=== PATIENT | male | born 1950 | race Caucasian/White ===

== ENCOUNTER 2019-03-04 09:45 | Day surgery (SDC) | payer MEDICARE, BC ==
[~2019-03-04] VITALS: Ht 185.4 cm; Wt 100.0 kg
[2019-03-04 10:05] LABS: HEMATOCRIT 46.5 % (42.0-54.0); HEMOGLOBIN 15.9 g/dL (13.5-17.5); MCH 31.1 pg (26.0-34.0); MCHC 34.2 g/dL (31.0-37.0); MCV 90.8 fL (80.0-100.0); RBC 5.12 10x6/uL (4.20-6.10); RDW 13.5 % (11.5-14.5); WBC 6.4 10x3/uL (4.8-10.8)
[2019-03-04] MEDS ORDERED: METOPROLOL TART50 MG PO (10:22)
[2019-03-04] MEDS ORDERED: NORVASC5 MG PO (10:23)
[2019-03-04] MEDS ORDERED: COZAAR50 MG PO (10:24)
[2019-03-04] MEDS ORDERED: REMERON30 MG PO (10:24)
[2019-03-04] MEDS ORDERED: MOBIC7.5 MG PO (10:25)
[2019-03-04] MEDS ORDERED: INDOCIN25 MG PO (10:26)
[2019-03-04 10:31] VITALS: BP 174/88; Ht 185.4 cm; Wt 100.0 kg
--- NOTE | 2019-03-09 11:16 | OP ---
PATIENT NAME: ROQUE SEE MEDICAL RECORD: [id number] :48 LOCATION:[facility] ADMISSION DATE: SURGEON: DIEGO BOYD DO DATE OF OPERATION: 03/04/2019 PROCEDURE: EGD with balloon dilation and biopsies. INDICATIONS FOR PROCEDURE: Dysphagia, heartburn, nausea and vomiting. SCOPE: Olympus video gastroscope. MEDICATIONS: Propofol 150 mg IV per anesthesia. ESTIMATED BLOOD LOSS: Minimal. COMPLICATIONS: None. FINDINGS: Informed consent was given. The patient was made comfortable with the above medication. After reaching an adequate level of sedation by slow IV push, the patient was placed on his left side. The endoscope was advanced under direct visualization through the mouth to the second portion of the duodenum with ease. The upper, middle, and lower thirds of the esophagus appeared normal. At the GE junction, there was evidence of LA class B reflux-induced esophagitis and some minor esophageal stenosis to approximately 16 mm diameter. A CRE dilating balloon was placed through the working channel of the endoscope across the stenosis and the site was dilated up to 18 mm maximum diameter successfully. Cold forceps biopsies were taken from the squamocolumnar junction to submit for histopathology. The endoscope was advanced beyond the GE junction into the stomach and retroflexed to view the cardia, where a small sliding hiatal hernia was visible. The fundus of the stomach appeared normal. As the endoscope passed through the distal body of the stomach as well as the antrum and prepyloric regions, there were changes of granularity and erythema consistent with gastritis. Random cold forceps biopsies were taken from the antrum and incisura to submit for histopathology and to rule out the presence of H. pylori. The endoscope was advanced beyond the pylorus into the duodenum, which appeared normal down to the second portion. The endoscope was withdrawn from the patient. The patient tolerated the procedure well. There were no complications. IMPRESSION: 1. LA class B reflux-induced esophagitis. 2. Esophageal stenosis, status post dilation to 18 mm. 3. Small sliding hiatal hernia. 4. Gastritis. PLAN AND RECOMMENDATIONS: 1. Discharge home when recovery parameters are met. 2. Follow up biopsy specimen results. 3. GERD diet and reflux precautions. 4. Continue current medications. 5. A prescription for omeprazole 40 mg daily times 60 days will be provided. 6. After completion of omeprazole, okay to use [id number] Pepcid 20 to 40 mg daily for heartburn and reflux. 7. We will follow up in the clinic in 1 month to determine if the patient's nausea and vomiting persist after this procedure. If the nausea and vomiting OPERATIVE REPORT [id number] ROQUE SEE does persist, we will work this up further and this may include gallbladder workup as well as a gastric emptying scan. It is possible that the patient's hiatal hernia is the cause of some of his symptoms as it is just after eating when he states that he gets nauseous and starts to throw up before he oftentimes will regurgitate or spit up food. 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
== END 2019-03-04 12:05 | disposition home or self-care (01) ==
LOC: D.OPS 09:45
PROVIDERS: Anesthesiology; ATTEND Internal Medicine Gastroenterology
DX: K21.0 Gastro-esophageal reflux disease with esophagitis (principal); R13.10 Dysphagia, unspecified; R12 Heartburn; K22.2 Esophageal obstruction; K29.70 Gastritis, unspecified, without bleeding; K44.9 Diaphragmatic hernia without obstruction or gangrene

== ENCOUNTER → 2020-09-08 12:13 | Outpatient (CLI) | payer MEDICARE, BC ==
[2019-07-02 13:50] VITALS: BMI 30.3
[~2020-09-08 12:13] MED LIST: COZAAR50 MG PO; ELIQUIS5 MG PO; INDOCIN25 MG PO; METOPROLOL TART50 MG PO; MOBIC7.5 MG PO; NORVASC5 MG PO; REMERON30 MG PO
== END | disposition home or self-care (01) ==
LOC: D.LAB 12:13
PROVIDERS: ATTEND Internal Medicine Pulmonary Disease
DX: Z11.52 Encounter for screening for COVID-19 (principal)

== ENCOUNTER → 2020-09-12 14:19 | Outpatient (CLI) | payer MEDICARE, BC ==
[2019-07-02 13:50] VITALS: BMI 30.3
--- NOTE | 2020-09-12 15:23 | NUR ---
PT STATES HE PASSES OUT WHEN HE IS EXERTING ON EXHALTION. PT IS A TOTAL LIFT AND IS 6'1" AND WEIGHS 250 LBS. SPOKE WITH JOYCE FROM [facility] AND SHE SAID SHE WOULD SPEAK WITH DR OTERO BUT WHAT THEY NEEDED THEY COULD TELL BY CT.
[2020-09-12 16:32] LABS: CREATININE - SERUM 1.1 mg/dL (0.6-1.3)
== END | disposition home or self-care (01) ==
LOC: D.CT 14:19 → D.RT 15:00
PROVIDERS: ATTEND Internal Medicine Pulmonary Disease
DX: R06.00 Dyspnea, unspecified (principal)

== ENCOUNTER → 2020-10-14 14:03 | Outpatient (CLI) | payer MEDICARE, BC ==
[2019-07-02 13:50] VITALS: BMI 30.3
== END | disposition home or self-care (01) ==
LOC: D.LAB 14:03
PROVIDERS: ATTEND Internal Medicine Pulmonary Disease
DX: Z11.52 Encounter for screening for COVID-19 (principal)

== ENCOUNTER → 2020-10-20 11:02 | Outpatient (CLI) | payer MEDICARE, BC ==
[2019-07-02 13:50] VITALS: BMI 30.3
== END | disposition home or self-care (01) ==
LOC: D.LAB 10:15 → D.RT 11:00 → D.LAB 11:02
PROVIDERS: ATTEND Internal Medicine Pulmonary Disease
DX: R06.00 Dyspnea, unspecified (principal); Z11.52 Encounter for screening for COVID-19